=== PATIENT | male | born 1955 | race Caucasian/White ===

== ENCOUNTER 2017-07-14 14:04 | Outpatient (CLI) | payer BC ==
--- NOTE | 2017-07-14 14:27 | RAD ---
THREE VIEWS OF THE LUMBAR SPINE: DATE: 07/14/17. COMPARISON: None. HISTORY: Inflammatory spondylopathy. FINDINGS: Five lumbar-type vertebral bodies are present with intact pedicles on frontal imaging. There is disk space narrowing at multiple levels within the lumbar spine, most significant at L4-5. There is mild degenerative end plate change with anterior osteophyte formation at L2-3 and L4-5. There is facet h ypertrophy at the L4-5 and L5-S1 levels. There is no acute fracture or evidence of dislocation. IMPRESSION: Degenerative disk disease. No acute osseous abnormality. POS: TATE
== END 2017-07-14 14:05 | disposition home or self-care (01) ==
LOC: RAD 14:04
PROVIDERS: ATTEND Internal Medicine Rheumatology
DX: M46.87 Other specified inflammatory spondylopathies, lumbosacral region (principal); M51.37 Other intervertebral disc degeneration, lumbosacral region
CPT/HCPCS: 72100